=== PATIENT | male | born 1960 | race Caucasian/White ===

== ENCOUNTER → 2018-03-06 | Outpatient (CLI) | payer BC, OTHER ==
[~2018-03-06] MED LIST: LIDOCAINE 2% MDV 20 ML VIAL As Ordered
== END ==
LOC: M RADPRO 13:12
DX: M00.9 Pyogenic arthritis, unspecified (principal)
CPT/HCPCS: 36569

== ENCOUNTER 2021-07-22 13:29 | Outpatient (RCR) | payer OTHER | END 2021-07-23 | LOC: M PT 13:29 | PROVIDERS: ATTEND Family Medicine | DX: I89.0 Lymphedema, not elsewhere classified (principal) ==

== ENCOUNTER → 2023-06-13 | Outpatient (CLI) | payer OTHER ==
[~2023-06-13] MED LIST changes: +GASTROGRAFIN SOLUTION 30ML As Ordered ONE; -LIDOCAINE 2% MDV 20 ML VIAL As Ordered; +READI-CAT 2 As Ordered ONE
== END ==
LOC: M RAD 14:01
PROVIDERS: ATTEND Surgery
DX: K46.9 Unspecified abdominal hernia without obstruction or gangrene (principal); K43.5 Parastomal hernia without obstruction or gangrene

== ENCOUNTER 2023-08-16 10:33 | Day surgery (SDC) | payer OTHER ==
[~2023-08-16] VITALS: Ht 165.1 cm; Wt 84.8 kg
[~2023-08-16 10:33] MED LIST changes: +FLOM0.4C39 PO; -GASTROGRAFIN SOLUTION 30ML As Ordered ONE; +LISI20TA33 PO; +METF-723 PO; -READI-CAT 2 As Ordered ONE; +ROSU10TA6 PO
[2023-08-16] MEDS: NS 1,000 ML IV ONE (10:54)
[2023-08-16 13:39] VITALS: BP 137/91; TEMP 95.5; O2SAT 95
== END 2023-08-16 13:42 | disposition home or self-care (01) ==
LOC: M OPP 10:33
PROVIDERS: ATTEND Internal Medicine Gastroenterology
DX: Z12.11 Encounter for screening for malignant neoplasm of colon (principal); Z85.038 Personal history of other malignant neoplasm of large intestine; Q43.8 Other specified congenital malformations of intestine; Z87.891 Personal history of nicotine dependence; E11.9 Type 2 diabetes mellitus without complications; I10 Essential (primary) hypertension; Z79.02 Long term (current) use of antithrombotics/antiplatelets; Z79.84 Long term (current) use of oral hypoglycemic drugs; Z79.899 Other long term (current) drug therapy; Z88.0 Allergy status to penicillin; Z91.041 Radiographic dye allergy status

== ENCOUNTER 2023-08-23 06:00 | Inpatient (IN) | payer OTHER ==
[2023-08-23] VITALS (12 sets, daily range): BP systolic 143–190; BP diastolic 80–130; TEMP 97.7–98.8; O2SAT 88–96
[~2023-08-23] VITALS: Ht 165.1 cm; Wt 83.4 kg
[~2023-08-23 06:00] MED LIST changes: -ROSU10TA6 PO; +ROSU10TA61 PO
[2023-08-23] MEDS ORDERED: GLUCAGON INJ 1MG VIAL SC PRN ×2 (06:15→09:35)
[2023-08-23] MEDS ORDERED: GLUCOSE 4 GM CHEW PO PRN ×2 (06:15→09:35)
[2023-08-23] MEDS ORDERED: DEXTROSE 50% 50ML SYRINGE IV PRN ×2 (06:15→09:35)
[2023-08-23] MEDS ORDERED: LR 1,000 ML IV SCH (06:15)
[2023-08-23] MEDS ORDERED: INSULIN LISPRO (NovoLOG) PER UNIT SC PRN (06:15)
[2023-08-23] MEDS ORDERED: HOME MED LIST COMPLETE! XX SCH (06:45)
[2023-08-23] MEDS: ceFAZolin SOD 2 GM in IV 1 EA IV ONE (07:42)
[2023-08-23] MEDS ORDERED: ACETAMINOPHEN 1000MG 100ML IV BAG As Ordered ONE (08:07)
[2023-08-23] MEDS ORDERED: METOCLOPRAMIDE INJ 10MG/2ML VIAL As Ordered ONE (08:07)
[2023-08-23] MEDS ORDERED: propofoL 200 MG/20 ML VIAL As Ordered ONE (08:07)
[2023-08-23] MEDS ORDERED: MIDAZOLAM INJ 2MG/2ML VIAL As Ordered ONE (08:07)
[2023-08-23] MEDS ORDERED: dexmedeTOMIDine (4MCG/ML)200MCG/50ML BTL (PRECEDEX) As Ordered ONE (08:07)
[2023-08-23] MEDS ORDERED: ROCURONIUM BROMIDE 50MG/5ML VIAL As Ordered ONE (08:07)
[2023-08-23] MEDS ORDERED: fentaNYL 100 MCG/2 ML INJECTION As Ordered ONE (08:07)
[2023-08-23] MEDS ORDERED: ONDANSETRON 4MG 2ML VIAL As Ordered ONE (08:07)
[2023-08-23] MEDS ORDERED: LIDOCAINE 2% 100MG/5ML SDV (FOR ANES.) As Ordered ONE (08:07)
[2023-08-23] MEDS ORDERED: SUGAMMADEX SODIUM 500 MG/5 ML VIAL (BRIDION) As Ordered ONE (08:07)
[2023-08-23] MEDS ORDERED: KETOROLAC 60MG 2ML VIAL As Ordered ONE (08:25)
[2023-08-23] MEDS ORDERED: ePHEDrine SULFATE 25 MG/5 ML(5MG/ML) SYRINGE As Ordered ONE (08:37)
[2023-08-23] MEDS: DOCUSATE SODIUM 100MG CAPSULE PO SCH (09:00)
[2023-08-23] MEDS ORDERED: MORPHINE 4 MG/ML 1ML VIAL IV PRN (09:30)
[2023-08-23] MEDS ORDERED: MORPHINE 2 MG/ML 1ML VIAL IV PRN (09:30)
[2023-08-23] MEDS ORDERED: ONDANSETRON 4MG 2ML VIAL IV PRN ×2 (09:30→09:55)
[2023-08-23] MEDS: LR 1,000 ML IV SCH (09:55)
[2023-08-23] MEDS ORDERED: HYDROMORPHONE HCL 0.5 MG/ 0.5 ML SYRINGE IV PRN (09:55)
[2023-08-23] MEDS: fentaNYL 100 MCG/2 ML INJECTION IV PRN (10:13)
[2023-08-23] MEDS: oxyCODONE 5MG TAB PO PRN (10:24)
[2023-08-23] MEDS: NS 1,000 ML IV SCH (10:53)
[2023-08-23] MEDS: INSULIN LISPRO (NovoLOG) PER UNIT SC ONE (10:53)
[2023-08-23] MEDS: INSULIN LISPRO (NovoLOG) PER UNIT SC SCH ×2 (12:00→21:00)
[2023-08-23] MEDS: KETOROLAC 30 MG/ML 1ML VIAL IV SCH (14:01)
[2023-08-23] MEDS: cefTRIAXone SOD 1 GM in D5W MINI-BAG PLUS 50 ML IV SCH (15:16)
[2023-08-23] MEDS: ROSUVASTATIN 10 MG TAB (CRESTOR) PO SCH (20:31)
[2023-08-23] MEDS: PANTOPRAZOLE 40MG VIAL IV SCH (20:31)
[2023-08-23] MEDS: TAMSULOSIN 0.4 MG CAP PO SCH (20:33)
[2023-08-24] VITALS (9 sets, daily range): BP systolic 128–149; BP diastolic 66–90; TEMP 97.9–98.6; O2SAT 63–96
[2023-08-24 08:20] LABS: HEMATOCRIT 35.7 % (42.0-52.0); HEMOGLOBIN 12.1 g/dl (13.5-17.5); MEAN CORPUSCULAR HGB CONC 33.9 g/dl (32.0-36.5); MEAN CORPUSCULAR VOLUME 88.6 fl (80.0-96.0); PLATELET COUNT, AUTOMATED 166 10^3/uL (150-450); RED BLOOD COUNT 4.03 10^6/uL (4.30-6.10); WHITE BLOOD COUNT 9.3 10^3/uL (4.0-10.0)
[2023-08-24] MEDS: SENNA 8.6 MG TAB (SENOKOT) PO SCH (08:36)
[2023-08-24] MEDS: ALVIMOPAN 12 MG CAPSULE (ENTEREG) PO SCH (08:37)
[2023-08-24] MEDS: SIMETHICONE 80MG CHEW TAB PO SCH (08:37)
[2023-08-24 08:46] LABS: BLOOD UREA NITROGEN 12 MG/DL (9-23); CALCIUM LEVEL 8.1 MG/DL (8.3-10.6); CARBON DIOXIDE LEVEL 29 MMOL/L (20-31); CHLORIDE LEVEL 107 MMOL/L (98-107); CREATININE FOR GFR 0.67 MG/DL (0.70-1.30); GLOMERULAR FILTRATION RATE > 60.0 (>49); GLUCOSE, FASTING 102 MG/DL (74-106); POTASSIUM SERUM 3.9 MMOL/L (3.5-5.1); SODIUM LEVEL 141 MMOL/L (136-145)
[2023-08-24] MEDS: MORPHINE 2 MG/ML 1ML VIAL IV PRN (10:09)
[2023-08-25] VITALS (7 sets, daily range): BP systolic 118–170; BP diastolic 80–89; TEMP 97.7–98.3; O2SAT 93–94
[2023-08-25 07:34] LABS: HEMATOCRIT 37.2 % (42.0-52.0); HEMOGLOBIN 12.7 g/dl (13.5-17.5); MEAN CORPUSCULAR HEMOGLOBIN 29.9 pg (27.0-33.0); MEAN CORPUSCULAR HGB CONC 34.1 g/dl (32.0-36.5); MEAN CORPUSCULAR VOLUME 87.5 fl (80.0-96.0); PLATELET COUNT, AUTOMATED 174 10^3/uL (150-450); RED BLOOD COUNT 4.25 10^6/uL (4.30-6.10); WHITE BLOOD COUNT 7.9 10^3/uL (4.0-10.0)
[2023-08-25 08:00] LABS: BLOOD UREA NITROGEN 7 MG/DL (9-23); CALCIUM LEVEL 8.6 MG/DL (8.3-10.6); CARBON DIOXIDE LEVEL 28 MMOL/L (20-31); CHLORIDE LEVEL 106 MMOL/L (98-107); CREATININE FOR GFR 0.58 MG/DL (0.70-1.30); GLOMERULAR FILTRATION RATE > 60.0 (>49); GLUCOSE, FASTING 103 MG/DL (74-106); POTASSIUM SERUM 3.8 MMOL/L (3.5-5.1); SODIUM LEVEL 141 MMOL/L (136-145)
[2023-08-26] VITALS (7 sets, daily range): BP systolic 134–178; BP diastolic 74–90; TEMP 97.3–98.1; O2SAT 92–97
[2023-08-26 07:02] LABS: HEMATOCRIT 39.9 % (42.0-52.0); HEMOGLOBIN 13.7 g/dl (13.5-17.5); MEAN CORPUSCULAR HEMOGLOBIN 29.5 pg (27.0-33.0); MEAN CORPUSCULAR HGB CONC 34.3 g/dl (32.0-36.5); MEAN CORPUSCULAR VOLUME 85.8 fl (80.0-96.0); PLATELET COUNT, AUTOMATED 193 10^3/uL (150-450); RED BLOOD COUNT 4.65 10^6/uL (4.30-6.10); WHITE BLOOD COUNT 7.8 10^3/uL (4.0-10.0)
[2023-08-26 07:27] LABS: BLOOD UREA NITROGEN 9 MG/DL (9-23); CALCIUM LEVEL 8.6 MG/DL (8.3-10.6); CARBON DIOXIDE LEVEL 27 MMOL/L (20-31); CHLORIDE LEVEL 103 MMOL/L (98-107); CREATININE FOR GFR 0.61 MG/DL (0.70-1.30); GLOMERULAR FILTRATION RATE > 60.0 (>49); GLUCOSE, FASTING 116 MG/DL (74-106); POTASSIUM SERUM 3.9 MMOL/L (3.5-5.1); SODIUM LEVEL 138 MMOL/L (136-145)
[2023-08-27 02:55] VITALS: BP 152/86; TEMP 98.1; O2SAT 95
[2023-08-27 06:08] VITALS: BP 142/90; TEMP 98.1; O2SAT 96
[2023-08-27 06:20] LABS: HEMATOCRIT 39.9 % (42.0-52.0); HEMOGLOBIN 13.7 g/dl (13.5-17.5); MEAN CORPUSCULAR HEMOGLOBIN 29.8 pg (27.0-33.0); MEAN CORPUSCULAR HGB CONC 34.3 g/dl (32.0-36.5); MEAN CORPUSCULAR VOLUME 86.7 fl (80.0-96.0); PLATELET COUNT, AUTOMATED 200 10^3/uL (150-450); WHITE BLOOD COUNT 7.4 10^3/uL (4.0-10.0)
[2023-08-27 06:49] LABS: BLOOD UREA NITROGEN 12 MG/DL (9-23); CALCIUM LEVEL 8.9 MG/DL (8.3-10.6); CARBON DIOXIDE LEVEL 28 MMOL/L (20-31); CHLORIDE LEVEL 104 MMOL/L (98-107); CREATININE FOR GFR 0.57 MG/DL (0.70-1.30); GLOMERULAR FILTRATION RATE > 60.0 (>49); GLUCOSE, FASTING 122 MG/DL (74-106); SODIUM LEVEL 140 MMOL/L (136-145)
== END 2023-08-27 12:20 | disposition home or self-care (01) | DRG 221 ==
LOC: M OR 06:00 → EDSTATUS 07:30 → M MSPAV 10:36
PROVIDERS: ADMIT Surgery; ATTEND Surgery
PROC: 0DBN0ZZ Excision of Sigmoid Colon, Open Approach (ICD-10-PCS; principal; 2023-08-23 07:30)
DX: K43.3 Parastomal hernia with obstruction, without gangrene (principal); I10 Essential (primary) hypertension; E11.9 Type 2 diabetes mellitus without complications; E78.00 Pure hypercholesterolemia, unspecified; Z85.048 Personal history of other malignant neoplasm of rectum, rectosigmoid junction, and anus; Z92.3 Personal history of irradiation; Z92.21 Personal history of antineoplastic chemotherapy; Z79.84 Long term (current) use of oral hypoglycemic drugs; Z79.899 Other long term (current) drug therapy; Z88.0 Allergy status to penicillin; Z91.041 Radiographic dye allergy status; Z93.3 Colostomy status